=== PATIENT | male | born 1930 ===

== ENCOUNTER 2018-04-22 09:18 | Emergency (ER) | payer OTHER ==
[2018-04-22 09:21] VITALS: BMI 27.4
--- NOTE | 2018-04-22 09:34 | C.PDOC ---
History Of Present Illness 87 yo male hx of htn, dementia, alzeimers, presents via ems. as per ems, pt was found wandering the street. h/of dementia baseline confused. daughter now at bedside states this is baseline. pt noted to by hypothermic. no complaint y esterdya. daughter states noted father missing at 5am. pt at bedside awake answeirng questions apprioriately w/o medical complaint Time Seen by Provider: 04/22/18 09:20 Chief Complaint (Nursing): Altered Mental Status Past Medical History Reviewed: Historical Data, Nursing Documentation, Vital Signs - Medical History PMH: Alzheimer's Disease, Arthritis, Dementia, HTN, Hypercholesterolemia Family History: States: Unknown Family Hx - Social History Hx Alcohol Use: No Hx Substance Use: No - Immunization History Hx Tetanus Toxoid Vaccination: No Hx Influenza Vaccination: Yes Hx Pneumococcal Vaccination: Yes Review Of Systems Constitutional: Positive for: Other (hypthermia) Physical Exam - Physical Exam Appears: Well, No Acute Distress, Confused (chronic dementia) Skin: Normal Color, Warm, Dry Eye(s): bilateral: Normal Inspection, PERRL, EOMI Nose: Normal Throat: Normal Neck: Normal Cardiovascular: Rhythm Regular Respiratory: Normal Breath Sounds, No Rales, No Rhonchi Gastrointestinal/Abdominal: Normal Exam, Soft, No Tenderness, No Guarding, No Rebound Back: Normal Inspection Extremity: Normal ROM ED Course And Treatment - Laboratory Results Result Diagrams: 04/22/18 09:58 04/22/18 09:58 Medical Decision Making Medical Decision Making: suspect baseline dementia. - ro infectious metabolic etiology for acute delirium ekg nsr 93 poor tracing 2/2 artifact labs leukocytosis. cxr ?atelectasis vs infiltrate. ct added no e/o of infiltrate. pt at baseline vitals stable. family bedside able to take pt home. Disposition - Disposition Disposition: HOME/ ROUTINE Disposition Time: 11:20 Condition: STABLE Additional Instructions: return to er with worsening symptoms or concerns. please discuss your lab tests with your doctor/ you may need further testing as an outpatient. return to er with worsening symptoms or concerns. Instructions: Dementia (Including Alzheimer Disease), White Blood Cell Count Differential Test Forms: [employer] (Niuean) - Clinical Impression Clinical Impression: Dementia, Leukocytosis
--- NOTE | 2018-04-22 10:01 | RAD ---
Date of service: 04/22/2018 HISTORY: SOB COMPARISON: None available. FINDINGS: LUNGS: Bibasilar atelectasis. Developing infiltrates could be excluded with follow-up radiographs. Suspect small bilateral effusions. PLEURA: As above. No pneumothorax apparent. CARDIOVASCULAR: Mild aortic atherosclerotic calcification present. Heart size borderline/mildly enlarged. Size. No pulmonary vascular congestion. OSSEOUS STRUCTURES: No significant abnormalities. VISUALIZED UPPER ABDOMEN: Normal. OTHER FINDINGS: None. IMPRESSION: Bibasilar atelectasis. Developing infiltrates could be excluded with follow-up radiographs. Suspect small bilateral effusions.
[2018-04-22 10:05] LABS: BASO # 0.1 K/uL (0.0-0.2); BASO % 0.4 % (0.0-2.0); HEMOGLOBIN 13.2 g/dL (12.0-18.0); LYMPH # 1.2 K/uL (1.0-4.3); MEAN CORPUSCULAR HEMOGLOBIN 29.9 pg (27.0-31.0); MEAN CORPUSCULAR HGB CONC 34.3 g/dL (33.0-37.0); MEAN PLATELET VOLUME 7.4 fL (7.2-11.7); MONO % 6.6 % (0.0-10.0); NEUT # 13.1 K/uL (1.8-7.0); NRBC % 0.1 % (0.0-2.0); PLATELET COUNT 299 K/uL (130-400); RBC 4.41 Mil/uL (4.40-5.90); RED CELL DISTRIBUTION WIDTH 13.2 % (11.5-14.5); WHITE BLOOD COUNT 15.5 K/uL (4.8-10.8)
[2018-04-22 10:09] VITALS: RESP 18; O2SAT 98
[2018-04-22 10:21] LABS: ALB/GLOB RATIO 1.4 (1.0-2.1); ALBUMIN 4.8 g/dL (3.5-5.0); CALCIUM 9.5 mg/dl (8.6-10.4); INR 1.1; PROTHROMBIN TIME 12.3 SECONDS (9.7-12.2)
[2018-04-22 10:22] LABS: BASOPHIL 1 % (0-2); LYMPHOCYTE 9 % (20-40); MONOCYTE 7 % (0-10); NEUTROPHIL 83 % (50-75); PLATELET ESTIMATE NORMAL (NORMAL); TOTAL CELLS COUNTED 100
[2018-04-22 10:30] LABS: SQUAMOUS EPITHIAL < 1 /hpf (0-5); URINE BACTERIA OCC (<OCC); URINE BILIRUBIN NEGATIVE (NEGATIVE); URINE BLOOD 1+ (NEGATIVE); URINE CLARITY Hazy (Clear); URINE COLOR Yellow (YELLOW); URINE GLUCOSE (UA) NORMAL (Normal); URINE HYALINE CAST >20 /lpf (0-2); URINE LEUKOCYTE ESTERASE NEG Leu/uL (Negative); URINE PROTEIN 2+ mg/dL (NEGATIVE); URINE UROBILINOGEN NORMAL mg/dL (0.2-1.0)
[2018-04-22 10:33] LABS: TROPONIN I 0.024 ng/mL (0.00-0.120)
--- NOTE | 2018-04-22 11:30 | CT ---
Date of service: 04/22/2018 PROCEDURE: CT Chest without contrast HISTORY: ams, ro pna COMPARISON: None available. TECHNIQUE: Contiguous axial images were obtained through the chest without intravenous contrast enhancement. Sagittal and coronal reconstructions were performed. Radiation dose: Total exam DLP = 157.07 mGy-cm. This CT exam was performed using one or more of the following dose reduction techniques: Automated exposure control, adjustment of the mA and/or kV according to patient size, and/or use of iterative reconstruction technique. FINDINGS: LUNGS: There is no evidence of focal infiltrate or consolidation in the lungs to suggest pneumonia. 4 millimeter calcified nodule at the right lung upper lobe likely represent calcified granuloma. Mild central bronchial wall thickening is noted which could be due to bronchitis. Mild pulmonary vascular congestion. MEDIASTINUM: Unremarkable thoracic aorta. No aneurysm. Mild cardiomegaly. Main pulmonary artery unremarkable. No vascular congestion. Calcified lymph node in the mediastinum are noted. There are foci of aortic atherosclerotic calcification. PLEURA: No pleural fluid. No pneumothorax. BONES: No fracture. No destructive lesion. UPPER ABDOMEN: There is a small size hiatus hernia noted. No evidence of acute pathology in the visualized upper abdomen. 2.2 centimeter calcification noted anterior and to the right of the abdominal aorta likely represent calcified conglomerate lymph nodes. OTHER FINDINGS: None. IMPRESSION: No CT evidence of pneumonia. Mild central bronchial wall thickening suspicious for possible mild bronchitis. Mild cardiomegaly and mild pulmonary vascular congestion. Small hiatus hernia.
[2018-04-22 11:55] VITALS: BP 116/79; PULSE 79; TEMP 98
--- NOTE | 2018-04-26 22:23 | CARD ---
APPROVED REPORT Date of service: 04/22/2018 EKG Measurement Heart [id number] <Conclusion> Normal sinus rhythm Nonspecific ST and T wave abnormality Abnormal ECG
== END 2018-04-22 11:56 | disposition home or self-care (01) ==
LOC: C.ER 09:18
DX: F02.80 Dementia in other diseases classified elsewhere, unspecified severity, without behavioral disturbance, psychotic disturbance, mood disturbance, and anxiety (principal); G30.9 Alzheimer's disease, unspecified; D72.829 Elevated white blood cell count, unspecified; I10 Essential (primary) hypertension; E78.00 Pure hypercholesterolemia, unspecified